=== PATIENT | male | born 2000 | race Caucasian/White ===

== ENCOUNTER 2023-12-11 18:07 | Emergency (ER) | payer MEDICAID ==
[~2023-12-11] VITALS: Ht 180.3 cm; Wt 74.5 kg
[2023-12-11 18:11] VITALS: TEMP 97.9
[2023-12-11] MEDS ORDERED: HYDR30OI13 TP (19:31)
[2023-12-11] MEDS ORDERED: PRED-554 PO (19:31)
[2023-12-11 19:53] VITALS: BP 132/76; PULSE 75; RESP 16
== END 2023-12-11 19:54 | disposition home or self-care (01) ==
LOC: EMS 18:10
DX: L20.9 Atopic dermatitis, unspecified (principal)
CPT/HCPCS: 99283; Z7502

== ENCOUNTER 2024-04-19 19:55 | Emergency (ER) | payer MEDICAID ==
[~2024-04-19] VITALS: Ht 170.2 cm; Wt 73.0 kg
[~2024-04-19 19:55] MED LIST: HYDR30OI13 TP; PRED-554 PO
[2024-04-19 20:02] VITALS: TEMP 98.3
[2024-04-19] MEDS: DiphenhydrAMINE HCL 50 MG/ML VIAL IVP ONE (20:53)
[2024-04-19] MEDS: METOCLOPRAMIDE HCL 5 MG/ML 2 ML VIAL IVP ONE (20:53)
[2024-04-19] MEDS: SODIUM CHLORIDE 0.9% 1,000 ML IV ONE (20:53)
[2024-04-19 20:58] VITALS: BP 124/73; PULSE 73; RESP 20
== END 2024-04-19 22:09 | disposition home or self-care (01) ==
LOC: EMS 19:55
DX: R51.9 Headache, unspecified (principal)
CPT/HCPCS: 99284; 96374; 96361; 96375; J1200; J2765; J7030

== ENCOUNTER 2024-09-09 16:26 | Emergency (ER) | payer OTHER ==
[~2024-09-09] VITALS: Ht 180.3 cm; Wt 77.3 kg
[2024-09-09 16:32] VITALS: TEMP 98.7
[2024-09-09 17:15] VITALS: BP 128/60; PULSE 65; RESP 18; O2SAT 100
[2024-09-09] MEDS ORDERED: PRED-554 PO (17:23)
[2024-09-09] MEDS ORDERED: TERB250T90 PO (17:23)
[2024-09-09] MEDS ORDERED: DIPH50CA37 PO (17:23)
[2024-09-09] MEDS ORDERED: PERM60CR4 TP (17:23)
[2024-09-09] MEDS ORDERED: CLOB15CR10 TP (17:25)
== END 2024-09-09 17:31 | disposition home or self-care (01) ==
LOC: EMS 16:26
DX: L30.9 Dermatitis, unspecified (principal)
CPT/HCPCS: 99283; Z7502